=== PATIENT | male | born 2005 | race Two or more races ===

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

== ENCOUNTER 2023-07-13 04:09 | Emergency (ER) | payer BC, MEDICAID ==
[~2023-07-13] VITALS: Ht 177.8 cm; Wt 86.4 kg
[2023-07-13 04:22] VITALS: BP 129/71; PULSE 75; RESP 12; TEMP 98.5
[2023-07-13] MEDS ORDERED: HYDR-4902 PO (04:48)
[2023-07-13] MEDS ORDERED: OFL50TS OT (04:48)
[2023-07-13] MEDS ORDERED: AUG875T PO (04:48)
[2023-07-13 05:33] VITALS: O2SAT 95
== END 2023-07-13 05:46 | disposition home or self-care (01) ==
LOC: ER 04:09
DX: H66.93 Otitis media, unspecified, bilateral (principal); R59.1 Generalized enlarged lymph nodes; Z79.899 Other long term (current) drug therapy

== ENCOUNTER 2024-11-29 02:19 | Emergency (ER) | payer BC, MEDICAID ==
[~2024-11-29] VITALS: Ht 177.8 cm; Wt 89.7 kg
[~2024-11-29 02:19] MED LIST: AUG875T PO; HYDR-4902 PO; OFL50TS OT
[2024-11-29] MEDS ORDERED: AMOX875T4 PO (03:19)
--- NOTE | 2024-11-29 03:19 | ED.PDOC ---
History of Present Illness(SKN HPI Comments 19-year-old male presents to ER with complaints of dog bite x1 day. Patient reports that he was bit by a [employer] [place] [employer] dog who is fully up-to-date on shots on his face at 10:40 p.m. prior to arrival to ER. Denies any pain and presents to ER ambulatory on arrival, with steady gait, in no distress with minimal abrasions noted to chin/left facial cheek. States he is unsure when his last tetanus shot was. Denies any further symptoms/complaints Chief Complaint: Animal Bite Time Seen by MD: 02:40 Primary Care Provider: HEATHER RANGEL History of Present Illness: Nurses Notes, Medications, Allergies Allergies: Coded Allergies: NO KNOWN ALLERGIES (Unverified , 12/01/13) Home Meds Active Scripts Amoxicillin & Pot Clavulanate (Amoxicillin/Potassium Cla) 875 Mg Tab, 1 TAB PO BID for 7 Days, #14 TAB 0 Refills Prov:JUSTIN STANFORD 11/29/24 Ofloxacin (Otic) (FLOXIN OTIC) [address], 5 DROP OT BID for 10 Days, #10 ML Prov:HEATHER SALAZAR Q ACCESS SERVICE REPRESENTATIVE 07/13/23 Hydrocodone-Acetaminophen (Hydrocodone Bitartrate/AC 5-325 mg) 1 Tab Tab, 1 TAB PO Q6HPRN PRN, #8 TAB as needed for severe pain Prov:HEATHER SALAZAR Q ACCESS SERVICE REPRESENTATIVE 07/13/23 Amoxicillin & Pot Clavulanate (AUGMENTIN TABLET) 875 Mg Tb, 1 TAB PO BID for 10 Days, #20 TAB Prov:HEATHER SALAZAR Q ACCESS SERVICE REPRESENTATIVE 07/13/23 Information Source: Patient Mode of Arrival: Ambulatory Past Medical History PAST MEDICAL HISTORY: Denies Surgical History: Denies all surgeries Family History Family History: Unknown Social History Smoker: Non-Smoker Alcohol: Denies ETOH Use Drugs: Denies Drug Use Lives In: Home Constitutional: denies: chills, diaphoresis, fatigue, fever, malaise, sweats, weakness, others EENTM: denies: blurred vision, double vision, ear bleeding, ear discharge, ear drainage, ear pain, ear ringing, eye pain, eye redness, hearing loss, mouth pain, mouth swelling, nasal discharge, nose bleeding, nose congestion, nose pain, photophobia, tearing, throat pain, throat swelling, voice changes, others Respiratory: denies: cough, hemoptysis, orthopnea, SOB at rest, shortness of breath, SOB with excertion, stridor, wheezing, others Cardiovascular: denies: chest pain, dizzy spells, diaphoresis, Dyspnea on exertion, edema, irregular heart beat, left arm pain, lightheadedness, pa lpitations, PND, syncope, others Gastrointestinal: denies: abdomen distended, abdominal pain, blood streaked bowels, constipated, diarrhea, dysphagia, difficulty swallowing, hematemesis, melena, nausea, poor appetite, poor fluid intake, rectal bleeding, rectal pain, vomiting, others Genitourinary: denies: burning, dysuria, flank pain, frequency, hematuria, incontinence, penile discharge, penile sore, pain, testicle pain, testicle swelling, urgency, others Neurological: denies: dizziness, fainting, headache, left sided numbness, left sided weakness, numbness, paresthesia, pre-existing deficit, right sided numbness, right sided weakness, seizure, speech problems, tingling, tremors, weakness, others Musculoskeletal: denies: back pain, gout, joint pain, joint swelling, muscle pain, muscle stiffness, neck pain, others Integumetry: reports: others (As stated in HPI) Allergic/Immunocompromised: denies: Difficulty Healing, Frequent Infections, Hives, Itching, others Hematologic/Lymphatic: denies: anemia, blood clots, easy bleeding, easy bruising, swollen glands, others Endocrine: denies: excessive hunger, excessive sweating, excessive thirst, excessive urination, flushing, intolerance to cold, intolerance to heat, unexplained weight gain, unexplained weight loss, others Psychiatric: denies: anxiety, bipolar disorder, depression, hopeless, panic disorder, schizophrenia, sleepless, suicidal, others Physical Exam General Appearance: No Apparent Distress HEENT: Normal ENT Inspection, PERRL/EOMI, Pharynx Normal, TMs Normal, Other (Minimal abrasions noted to chin and left facial cheek with bleeding controlled. No foreign body/further skin changes noted) Neck: Full Range of Motion, Non-Tender, Normal Respiratory: Chest Non-Tender, Lungs Clear, No Accessory Muscle Use, No Respiratory Distress, Normal Breath Sounds Cardiovascular: No Murmur, No Gallop, Regular Rate/Rhythm Breast Exam: Deferred Gastrointestinal: NOT DONE Genitalia: Deferred Pelvic: Deferred Rectal: Deferred Extremities: Normal capillary refill, Normal range of motion Neurologic: Alert, No Motor Deficits, Normal Affect, Normal Mood, No Sensory Deficits Cerebellar Function: Normal Reflexes: Normal Skin: Dry, Warm Lymphatic: No Adenopathy Was a procedure done? Was a procedure done?: No Sedation Sedation?: No Differential Diagnosis (INTG) Differential Diagnosis: Hematoma Differential Diagnosis: Cellulitis, Laceration, Retained Foreign Body X-Ray, Labs, Meds, VS Vital Signs Date Time Temp Pulse Resp B/P (MAP) Pulse Ox O2 Delivery O2 Flow Rate FiO2 11/29/24 02:32 98.2 77 18 143/99 (114) 95 98.2 Tdap 0.5 mL IM ordered Wound care/cleaning discussed and advised Advised to follow up with PCP in 1-2 days Patient verbalized understanding and agreeable with current plan of care Advised to return to ER immediately if symptoms worsen Time of 1ST Reevaluation: 02:54 Reevaluation 1ST: N/A Patient Education/Counseling: Diagnosis, Treatment, Prognosis, Need For Follow Up Family Education/Counseling: No Family Present Departure 1 Departure Time of Disposition: 03:12 Impression: Primary Impression: Dog bite of face Qualified Codes: S01.85XA - Open bite of other part of head, initial encounter; W54.0XXA - Bitten by dog, initial encounter Additional Impression: Abrasion of face Qualified Codes: S00.81XA - Abrasion of other part of head, initial encounter Disposition: 01 HOME / SELF CARE / HOMELESS Condition: Stable e-Prescriptions Amoxicillin & Pot Clavulanate (Amoxicillin/Potassium Cla) 875 Mg Tab 1 TAB PO BID for 7 Days, #14 TAB 0 Refills Prov: JUSTIN STANFORD 11/29/24 Discharged With: Self Critical Care Note Critical Care Time?: No Stability Stability form required: No Heart Score Heart Score: Heart Score Response (Comments) Value History N/A 0 EKG N/A 0 Age N/A 0 Risk Factors N/A 0 Troponin N/A 0 Total 0 JUSTIN STANFORD Nov 29, 2024 03:19
[2024-11-29] MEDS: TETANUS-DIPTH-ACEL PERTUSSIS 0.5ML SYR Tdap IM ONE (05:12)
[2024-11-29 05:15] VITALS: BP 149/80; TEMP 98.6
[2024-11-29 05:16] VITALS: PULSE 58; RESP 21; O2SAT 98
== END 2024-11-29 05:18 | disposition home or self-care (01) ==
LOC: ER 02:19
DX: S00.81XA Abrasion of other part of head, initial encounter (principal); W54.0XXA Bitten by dog, initial encounter; Y93.89 Activity, other specified; Y92.89 Other specified places as the place of occurrence of the external cause; Y99.8 Other external cause status
CPT/HCPCS: 90471; 90715